=== PATIENT | female | born 1975 ===

== ENCOUNTER 2024-02-17 07:47 | Day surgery (SDC) | payer OTHER ==
[2024-02-10 15:24] VITALS: BP 150/80
[~2024-02-17] VITALS: Ht 162.6 cm; Wt 126.6 kg
[~2024-02-17 07:47] MED LIST: CHILDREN'S ASPI81 MG PO; GABAPENTIN100 M2 PO; LOSARTAN-HCTZ1 EAC1 PO; NABUMETONE750 MG PO; PEPCID AC20 MG PO; SYNTHROID75 MCG PO
[2024-02-17] MEDS ORDERED: METRONIDAZOLE/SODIUM CHLORIDE 500 MG/100 ML PIGGYBACK IV SCH (13:15)
[2024-02-17] MEDS ORDERED: CEFTRIAXONE SODIUM 2,000 MG VIAL IV SCH (13:15)
[2024-02-17] MEDS ORDERED: HEMOSTATIC MATRIX 1 KIT KIT TOP ONE (13:15)
[2024-02-17] MEDS ORDERED: DIBUCAINE 30 GM TUBE RECTAL ONE (13:15)
[2024-02-17] MEDS ORDERED: BUPIVACAINE HCL 30 ML VIAL IJ ONE (13:15)
[2024-02-17] MEDS ORDERED: BUPIVACAINE LIPOSOME/PF 266 MG/20 ML VIAL IJ ONE (13:15)
[2024-02-17] MEDS ORDERED: POVIDONE-IODINE 118 ML BOTT TOP ONE (13:15)
[2024-02-17] MEDS ORDERED: NEURONTIN300 MG PO (13:53)
[2024-02-17] MEDS ORDERED: CELECOXIB200 MG PO (13:53)
[2024-02-17] MEDS ORDERED: INTESTINEX680 M1 PO (13:54)
[2024-02-17] MEDS ORDERED: MEPERIDINE HCL 25 MG/ML AMPUL IV ONE (18:30)
== END 2024-02-17 21:00 | disposition home or self-care (01) ==
LOC: CIR.AMB 07:47
PROVIDERS: ATTEND Surgery
DX: K60.1 Chronic anal fissure (principal); K62.5 Hemorrhage of anus and rectum; Z88.5 Allergy status to narcotic agent